=== PATIENT | male | born 1985 | race Caucasian/White ===

== ENCOUNTER 2022-12-16 12:19 | Emergency (ER) | payer OTHER, SELFPAY ==
[2022-12-16 12:27] VITALS: BP 133/75; PULSE 81; RESP 16; TEMP 36.8; O2SAT 100
--- NOTE | 2022-12-16 12:35 | ED.URI ---
HPI - URI/Sore Throat General Chief Complaint: Upper Respiratory Infection Stated Complaint: congestion,sinus pressure,cough Source: patient and RN notes reviewed History of Present Illness HPI Narrative: 37-year-old male presents urgent care with complaints of worsening congestion and facial pressure x4 days. Patient believes he has a sinus infection. denies any fevers, chills vomiting, chest pain or shortness of breath. Denies any sore throat or ear pain. Patient has taken [id number] guaifenesin with minimal relief. Some parts of this dictation were generated by voice recognition software and may contain typographical and/or grammatical inaccuracies. Related Data Allergies Allergy/AdvReac Type Severity Reaction Status Date / Time No Known Allergies Allergy Unknown Verified 12/16/22 12:23 Review of Systems Review of Systems: Pertinent positives and pertinent negatives per HPI. PMFSH Past Medical History Medical History Bipolar depression PTSD (post-traumatic stress disorder) Family History Family History Grandparent Alcoholism Social History Social History Smoking status: Current every day smoker Tobacco type: e-cigarettes/vaping Second hand tobacco smoke exposure: No Alcohol intake: current Drinks per week: 21 Substance use: current Substance use type: marijuana Lack of Transportation: No Lack of Food: Never True Current Housing: I Have Housing Concerned About Future Housing: No Difficulty Paying Gas/Electric Bills: No Difficulty Paying for Meds: No Currently Unemployed: No Education: High School Diploma/GED Difficulty w/ Childcare or Family Care: No Living arrangements: with family Additional living arrangements comments: and 3 childrens Occupation/Education: occupation Gender identity (if verbalized by the patient): Male Sexual Orientation (if Verbalized by the Patient): Straight or Heterosexual Spiritual care concerns: No Comments At the time of my signature, I reviewed and agree with the nursing past medical, surgical, social, and family history. There is no relevant family history pertinent to the patient complaint. Exam Narrative: GENERAL: This is a well-nourished, well-developed patient, in no apparent distress. HEAD: normocephalic, atraumatic. EYES: PERRL. Sclera clear/white. Vision is grossly intact. EARS: External ears normal, auditory canals clear and without drainage, TMs normal without perforation. Hearing grossly intact. NOSE: Congestion. THROAT: Mucous membranes moist, posterior pharynx clear. NECK: Neck supple, non-tender without lymphadenopathy, masses or thyromegaly. CARDIOVASCULAR: Regular rate and rhythm without murmurs, gallops, or rubs. RESPIRATORY: Clear to auscultation. Breath sounds equal bilaterally. No wheezes, rales, or rhonchi. GASTROINTESTINAL: Abdomen soft, non-tender, nondistended. Bowel sounds are active. No hepato-splenomegaly, or palpable masses. No guarding. SKIN: warm, intact with no suspicious lesions or rash, good texture and turgor. NEURO: awake, alert, and oriented to person, place and time. There were no obvious focal neurologic abnormalities. Course Course Level of Care: Express Care Visit Vital Signs Vital signs: Vital Signs Temperature 98.3 F 12/16/22 12:27 Pulse Rate 81 12/16/22 12:27 Respiratory Rate 16 12/16/22 12:27 Blood Pressure 133/75 12/16/22 12:27 Pulse Oximetry 100 12/16/22 12:27 Oxygen Delivery Room Air 12/16/22 12:27 Temperature 98.3 F 12/16/22 12:27 Pulse Rate 81 12/16/22 12:27 Respiratory Rate 16 12/16/22 12:27 Blood Pressure 133/75 12/16/22 12:27 Pulse Oximetry 100 12/16/22 12:27 Oxygen Delivery Room Air 12/16/22 12:27 Reviewed. MDM - URI/Sore Throat MDM Narrativ
== END 2022-12-16 12:40 | disposition home or self-care (01) ==
PROVIDERS: Emergency Provider Nurse Practitioner Family
DX: J01.90 Acute sinusitis, unspecified (principal); F17.290 Nicotine dependence, other tobacco product, uncomplicated; F12.90 Cannabis use, unspecified, uncomplicated
CPT/HCPCS: 99213; G0463

== ENCOUNTER 2023-10-08 09:49 | Emergency (ER) | payer OTHER, SELFPAY ==
[2023-10-08 10:14] VITALS: BP 121/84; PULSE 95; RESP 16; TEMP 36.9; O2SAT 99
--- NOTE | 2023-10-08 10:58 | ED.URI ---
HPI - URI/Sore Throat General Chief Complaint: Upper Respiratory Infection Stated Complaint: Flu Symptoms Time Seen by Provider: 10/08/23 10:49 Source: patient and RN notes reviewed Mode of arrival: ambulatory Limitations: no limitations History of Present Illness HPI Narrative: Patient presents today complaining of fatigue, chills, headache, postnasal drip, and intermittent vomiting since yesterday. He has tried some Advil for his headache with little relief. sick with similar symptoms. Related Data Home Medications Medication Instructions Recorded Confirmed No Home Medications 09/29/23 10/08/23 Allergies Allergy/AdvReac Type Severity Reaction Status Date / Time No Known Allergies Allergy Unknown Verified 10/08/23 10:28 Review of Systems Review of Systems: CONSTITUTIONAL: Denies body aches, fever, or sweats.+ fatigue, chills EYES: Denies visual changes, redness, or discharge. ENT: Denies rhinorrhea, congestion, sore throat, or otalgia.+ postnasal drip CARDIOVASCULAR: Denies chest pain, palpitations, or edema. RESPIRATORY: Denies cough or dyspnea. GASTROINTESTINAL: Denies abdominal pain, nausea, or diarrhea.+ vomiting GENITOURINARY: Denies dysuria or hematuria. SKIN: Denies rash, itching, or wounds. MUSCULOSKELETAL: Denies back pain, joint pain, or myalgia. NEUROLOGIC: Denies numbness, tingling, or weakness.+ headache PSYCH: Denies depression or anxiety. [facility] Past Medical History Medical History Bipolar depression PTSD (post-traumatic stress disorder) Family History Family History Grandparent Alcoholism Social History Social History Smoking status: Current every day smoker Tobacco type: e-cigarettes/vaping Second hand tobacco smoke exposure: No Alcohol intake: current Drinks per week: 21 Substance use: current Substance use type: marijuana Do You Feel Safe in your Home?: Yes Lack of Transportation: No Lack of Food: Never True Current Housing: I Have Housing Concerned About Future Housing: No Difficulty Paying Gas/Electric Bills: No Difficulty Paying for Meds: No Currently Unemployed: No Education: High School Diploma/GED Difficulty w/ Childcare or Family Care: No Living arrangements: with family Additional living arrangements comments: and 3 childrens Occupation/Education: occupation Gender identity (if verbalized by the patient): Male Sexual Orientation (if Verbalized by the Patient): Straight or Heterosexual Spiritual care concerns: No Agree to blood products: Yes Comments At time of signature, I have reviewed and agree with nursing past medical, surgical, social and family history unless otherwise noted. Please see nursing chart for further information. There is no relevant family history pertinent to the presenting complaint Exam Narrative: GENERAL: Mildly ill-appearing, well-nourished, and in no acute distress. HEAD: Normocephalic, atraumatic. EYES: EOMI. No redness or drainage. Conjunctivae normal. ENT: Mucous membranes pink and moist. Nares clear. No rhinorrhea. TMs normal bilaterally. Throat normal. Uvula midline. NECK: Normal AROM. Supple. No lymphadenopathy. CHEST: No respiratory distress. Clear to auscultation. HEART: Regular rate and rhythm. No murmur appreciated. EXTREMITIES: Normal range of motion. No edema. SKIN: Warm, dry, no rash. Capillary refill normal. Normal skin turgor. NEURO: No focal deficits. Alert and oriented x3. Gait steady. PSYCH: Normal affect. No signs of depression or anxiety. Course Course Level of Care: Express Care Visit Vital Signs Vital signs: Vital Signs Temperature 98.4 F 10/08/23 10:14 Pulse Rate 95 10/08/23 10:14 Respiratory Rate 16 10/08/23 10:14 Blood Pressure 121/84 0
== END 2023-10-08 11:07 | disposition home or self-care (01) ==
PROVIDERS: Emergency Provider Nurse Practitioner; PCP Family Medicine
DX: U07.1 COVID-19 (principal); F17.290 Nicotine dependence, other tobacco product, uncomplicated; F12.90 Cannabis use, unspecified, uncomplicated
CPT/HCPCS: 87426; 87804; 99213; G0463

== ENCOUNTER 2023-11-02 11:22 | Outpatient (CLI) | payer OTHER, SELFPAY ==
--- NOTE | ~2023-11-02 | XR_ITS ---
XR knee LT min 4V DATE: 11/02/2023 11:38 INDICATION: Fell through steps 2 days ago. Lateral left knee pain TECHNIQUE: 4 views COMPARISON: None FINDINGS: No fracture or dislocation or joint effusion. Joint spaces are well preserved. No periostea l reaction or bone destruction. No radiopaque intra-articular loose body or chondrocalcinosis. IMPRESSION: Negative Reviewed, dictated and finalized at location B. NUE MANAGER IMPRESSION: Negative
--- NOTE | ~2023-11-02 | XR_ITS ---
XR hip LT min 2V DATE: 11/02/2023 11:38 INDICATION: Fell through steps 2 days ago. Left hip pain TECHNIQUE: AP and lateral views COMPARISON: None FINDINGS: Mild left hip joint space narrowing and degenerative spurring consistent with mild left hip osteoarthritis. No fracture, dislocation, avascular necrosis or bone destruction. Normal alignment at the pubic symphysis and sacral iliac joints. IMPRESSION: Mild left hip osteoarthritis; no fracture or dislocation Reviewed, dictated and finalized at location B. HT COMMUNICATIONS SPECIALIST
== END 2023-11-02 11:23 | disposition home or self-care (01) ==
LOC: ANHIMG 11:25
PROVIDERS: PCP Family Medicine; Visit Provider Nurse Practitioner Family
DX: M79.605 Pain in left leg (principal); S89.92XA Unspecified injury of left lower leg, initial encounter; X58.XXXA Exposure to other specified factors, initial encounter; M16.12 Unilateral primary osteoarthritis, left hip
CPT/HCPCS: 73502; 73564